=== PATIENT | female | born 1960 | race Two or more races ===

== ENCOUNTER → 2017-01-05 | Outpatient (CLI) | payer BC ==
--- NOTE | 2017-01-05 11:08 | RAD ---
Abdominal ultrasound, 01/05/2017: History: Elevated liver enzymes The gallbladder is surgically absent. The common hepatic duct is of normal caliber. The liver is enlarged measuring 20 cm in craniocaudad extent. It demonstrates generalized increased echogenicity, most commonly due to fatty change. No hepatic mass is evident. The visualized portions of the pancreas are unremarkable. The spleen is at the upper limits of normal in size measuring 14 cm in craniocaudad extent. The kidneys are unremarkable. The visualized portions of the aorta and inferior vena cava show no abnormality. No free fluid is evident in the abdomen. IMPRESSION: 1. Status post cholecystectomy. 2. Mild hepatomegaly with hepatic steatosis. 3. Borderline splenomegaly.
== END | disposition home or self-care (01) ==
LOC: US 08:43
PROVIDERS: ATTEND Family Medicine
DX: K76.0 Fatty (change of) liver, not elsewhere classified (principal); R16.0 Hepatomegaly, not elsewhere classified; R16.1 Splenomegaly, not elsewhere classified; Z90.49 Acquired absence of other specified parts of digestive tract
CPT/HCPCS: 76700

== ENCOUNTER → 2017-03-01 | Outpatient (CLI) | payer BC ==
[~2017-03-01] MED LIST: HYDR-971 PO
--- NOTE | 2017-03-02 07:17 | RAD ---
Right lower extremity venous ultrasound, 03/01/2017 : History: Right leg pain Duplex evaluation including grayscale, color flow and spectral Doppler analysis was performed. The femoral and popliteal veins show no filling defects to suggest DVT. The visualized calf veins are unremarkable. IMPRESSION: There is no sonographic evidence of deep vein thrombosis in the right lower extremity
== END | disposition home or self-care (01) ==
LOC: US 16:51
PROVIDERS: ATTEND Nurse Practitioner Adult Health
DX: M79.604 Pain in right leg (principal); M71.21 Synovial cyst of popliteal space [Baker], right knee; M79.669 Pain in unspecified lower leg
CPT/HCPCS: 93971

== ENCOUNTER → 2017-03-02 | Outpatient (CLI) | payer BC ==
[~2017-03-02] MED LIST changes: +IOHEXOL 300 MG/ML 75 ML VIAL. IV ONE
--- NOTE | 2017-03-02 16:19 | RAD ---
CTA of the chest with contrast, 03/02/2017: History: Elevated d-dimer Multidetector CT imaging was performed following an IV bolus injection of iodinated contrast material. Multiplanar reconstructions were produced including coronal MIP images. The central pulmonary arteries are well opacified and no filling defects are seen to suggest pulmonary emboli. There is mild calcific plaquing of the thoracic aorta and its branches including the coronary arteries. The thoracic aorta is not dilated. No mediastinal adenopathy is seen. A small amount of lymphoid tissue is present at both deneen without definite pathologic enlargement. There is mild dependent atelectasis in both lungs. No pulmonary mass or significant infiltrate is seen. There is no evidence of pleural fluid. Diffusely decreased density in the liver suggests hepatic steatosis. There are mild scattered spurs in the spine. IMPRESSION: 1. No CT evidence of central pulmonary emboli. 2. Coronary artery calcifications. 3. Hepatic steatosis PQRS Compliance Statement: One or more of the following individualized dose reduction techniques were utilized for this examination: 1. Automated exposure control 2. Adjustment of the mA and/or kV according to patient size 3. Use of iterative reconstruction technique
== END | disposition home or self-care (01) ==
LOC: CT 15:18
PROVIDERS: ATTEND Family Medicine
DX: I25.10 Atherosclerotic heart disease of native coronary artery without angina pectoris (principal); J98.11 Atelectasis; K76.0 Fatty (change of) liver, not elsewhere classified; I10 Essential (primary) hypertension; J45.909 Unspecified asthma, uncomplicated; E03.9 Hypothyroidism, unspecified; R05 Cough
CPT/HCPCS: 71275; Q9967

== ENCOUNTER 2017-03-04 16:59 | Emergency (ER) | payer BC ==
[2017-03-04 17:09] VITALS: BP 148/78
[2017-03-04] MEDS ORDERED: HYDR-971 PO (17:32)
--- NOTE | 2017-03-04 17:33 | PHYS DOC ---
Past History Past Medical History: Diabetes, Hypertension, Other Alcohol Use: None Drug Use: None Adult General Chief Complaint Chief Complaint: KNEE PAIN HPI HPI Patient is a 56-year-old female who presented to the emergency department with the complaint of right knee pain for one week. Patient did not injure her knee. She didn't do anything to cause any knee pain, there was no overuse or excessive standing. In fact, she was seated more than usual during the day, then again during the evening, then her right knee started hurting 1 week ago. She saw her doctor this week in the office and had knee x-rays and was told that she had "mild osteoarthritis. 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 She continued to have pain mostly behind and below her knee and she had a venous Doppler with no DVT. She also had a positive d-dimer and ended up having CT angiography used which was negative. She took one dose of ibuprofen which did seem to help but she is very reluctant to use ibuprofen because years ago she had gastritis after using it for a long time. Her doctor also prescribed tramadol but she is still having pain. The patient presented to the ED basically with the request to have an MRI of her knee "to find out what is wrong with it". 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 Review of Systems Review of Systems Constitutional: Denies fever or chills [] Musculoskeletal: Denies any other joint pain except the right knee Allergies Allergies Allergies Coded Allergies Type Severity Reaction Last Updated Verified No Known Drug Allergies 03/02/17 No Physical Exam Physical Exam Constitutional: Well developed, well nourished, no acute distress, non-toxic appearance. [] HENT: Normocephalic, atraumatic, bilateral external ears normal, nose normal. [ ] Eyes: conjunctiva normal, no discharge. [] Neck: Normal range of motion, no stridor. [] Skin: Warm, dry, no erythema, no rash. [] Extremities: Right knee appears to have very mild swelling, no joint effusion, no redness, no warmth. Patient is able to actively extend her right knee. Right calf is very soft and does not appear consistent with DVT. There is some mild tenderness to palpation of the posterior aspect of the right leg just below the knee. There is no palpable fullness behind the knee. Neurologic: Alert and oriented X 3, normal motor function, normal sensory function, no focal deficits noted. [] Current Patient Data Vital Signs Vital Signs Date Time Temp Pulse Resp B/P (MAP) Pulse Ox O2 Delivery O2 Flow Rate FiO2 03/04/17 17:09 97.9 78 16 98 EKG EKG [] Radiology/Procedures Radiology/Procedures [] Course & Med Decision Making Course & Med Decision Making Pertinent Labs and Imaging studies reviewed. (See chart for details) 56-year-old female presents with 1 week of right knee pain which is causing her a lot of frustration because she does not know what's wrong with her knee. I talked to the patient about the fact that sometimes we do see people with sudden onset of knee pain for no apparent reason, I reassured her that in the case of people who have some amount of knee arthritis, it is not uncommon to have acute onset of knee pain without any particularly clear aggravating injury. I talked to her about the use of ibuprofen, I would recommend taking ibuprofen for a short time being careful to take it with food. I offered her a prescription for hydrocodone for more severe pain for short-term use until she is able to get to see an consumer marketing specialist and she agreed to that. Appropriate precautions were given. I advised her to try to get in to see an consumer marketing specialist for more evaluation of her knee. [] Dragon Disclaimer Dragon Disclaimer This chart was dictated in whole or in part using Voice Recognition software in a busy, high-work load, and often noisy Emergency Department environment. It may contain unintended and wholly unrecognized errors or omissions. Departure Departure: Impression: Primary Impression: Right knee pain Disposition: 01 HOME, SELF-CARE Condition: STABLE Referrals: SHERLY FLYNN MD (PCP) Patient Instructions: Knee Pain, [id number] Additional Instructions: Try to stay off of your knee and rest it for another day or 2. Ice 15-20 minutes out of every 1-2 hours. Ibuprofen 400 mg every 6-8 hours for pain and inflammation. You may combine tramadol or hydrocodone with ibuprofen if needed for extra pain control. Do not take tramadol and hydrocodone at the same time though. Talk to your doctor or see orthopedics for further knee evaluation, at this point you probably need to see an orthopedic knee specialist for further evaluation and treatment. Scripts Hydrocodone Bit/Acetaminophen (NORCO 5-325 TABLET) 1 Each Tablet 1-2 TAB PO Q4-6HRS for knee pain, #20 TAB Prov: LIBIA FISHER MD 03/04/17 LIBIA FISHER MD March 04, 2017 17:33
[2017-03-04] MEDS ORDERED: HYDROcodone/APAP 5/325MG 1 TAB TABLET PO ONE (18:00)
== END 2017-03-04 17:40 | disposition home or self-care (01) ==
LOC: ER 16:59
DX: M25.561 Pain in right knee (principal); E11.9 Type 2 diabetes mellitus without complications; I10 Essential (primary) hypertension
CPT/HCPCS: 99283

== ENCOUNTER 2017-08-09 17:27 | Emergency (ER) | payer BC ==
[~2017-08-09] VITALS: Ht 165.1 cm; Wt 89.4 kg
[~2017-08-09 17:27] MED LIST changes: -IOHEXOL 300 MG/ML 75 ML VIAL. IV ONE
[2017-08-09] MEDS ORDERED: IV NORMAL SALINE 1,000ML 1,000 ML IV SCH (18:30)
[2017-08-09] MEDS ORDERED: 0.9 % SODIUM CHLORIDE 10 ML DISP.SYRIN. IV PRN (18:30)
[2017-08-09] MEDS ORDERED: ONDANSETRON PF 4 MG/2 ML VIAL. IV ONE (18:30)
[2017-08-09] MEDS ORDERED: HYDROmorphone PF 2 MG/ML VIAL IV/SQ PRN (18:30)
--- NOTE | 2017-08-09 18:44 | PHYS DOC ---
Past History Past Medical History: Diabetes, Hypertension, Other Past Surgical History: Cholecystectomy, , Lumbar Laminectomy Alcohol Use: None Drug Use: None Adult General Chief Complaint Chief Complaint: HEADACHE HPI HPI Patient is a pleasant 57-year-old female with a history of chronic lower back pains prior laminectomy and continues to have sciatica with now atrophy of the muscles within the left leg she had a myelogram done yesterday by an anesthesiologist at [facility]. She was told to remain in a recumbent position and drink caffeine. She attempted to go to work today and even though she worked only a few hours she began having a throbbing headache that was worse with standing up. It is described as aching dull pain that radiates from the base versus scold to the base of her spine. There is no neck stiffness associated with this or fevers. Patient's been nauseated with photophobia but no actual vomiting diarrhea URI symptoms or change in neurologic status. Patient's pain is 5 of 10 laying down 8-9 of 10 when standing. Patient has taken nothing to try to fix her headache other than to large diet Mountain Dew soda's Review of Systems Review of Systems Constitutional: Denies fever or chills [] Eyes: Denies change in visual acuity, redness, or eye pain [] HENT: Denies nasal congestion or sore throat [] Respiratory: Denies cough or shortness of breath [] Cardiovascular: No additional information not addressed in HPI [] GI: Denies abdominal pain, vomiting, bloody stools or diarrhea [] : Denies dysuria or hematuria [] Musculoskeletal: She has chronic back pain. Integument: Denies rash or skin lesions [] Neurologic: He does complain of headache at the base of her skull not worst of life and sudden onset no focal new weakness Endocrine: Denies polyuria or polydipsia [] Current Medications Current Medications Current Medications Medications (Trade) Dose Ordered Sig/Jose Start Time Stop Time Status Last Admin Dose Admin Hydromorphone HCl (Dilaudid) 1 mg PRN Q15MIN PRN 08/09/17 18:30 08/09/17 18:30 1 MG Ondansetron HCl (Zofran) 4 mg 1X ONCE 08/09/17 18:30 08/09/17 18:31 DC 08/09/17 18:29 4 MG Sodium Chloride (Normal Saline Flush) 10 ml QSHIFT PRN 08/09/17 18:30 Allergies Allergies Allergies Coded Allergies Type Severity Reaction Last Updated Verified latex Allergy Severe RASH 08/09/17 Yes Physical Exam Physical Exam Other vital signs recorded on the chart patient under be hypertensive Constitutional: Well developed, well nourished, no acute distress, non-toxic appearance. [] HENT: Normocephalic, atraumatic,oropharynx moist. [] Eyes: PERRLA, EOMI, conjunctiva normal, no discharge. [] Neck: Normal range of motion, no tenderness, supple, no stridor. [] Cardiovascular:Heart rate regular rhythm, no murmur [] Lungs & Thorax: Bilateral breath sounds clear to auscultation [] Skin: Warm, dry, no erythema, no rash. [] Back: No tenderness, well-healed scar from a laminectomy the puncture site for the myelogram does not look warm, erythematous or soft tissue swelling is not noted.] Extremities: No edema no clubbing no cyanosis brisk capillary refill +2 brisk peripheral pulses noted Neurologic: Alert and oriented X 3, normal motor function, normal sensory function, no focal deficits noted. [] Psychologic: Affect normal, judgement normal, mood normal. [] Current Patient Data Vital Signs Vital Signs Date Time Temp Pulse Resp B/P (MAP) Pulse Ox O2 Delivery O2 Flow Rate FiO2 08/09/17 18:30 20 95 EKG EKG [] Radiology/Procedures Radiology/Procedures [] Course & Med Decision Making Course & Med Decision Making Pertinent Labs and Imaging studies reviewed. 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 Unfortunately at our facility we do not have anesthesia services or IV caffeine available on formulary. She said she like to go home and she will follow-up with her anesthesiologist tomorrow for symptoms continue. I did encourage her to go continue to work at home on her hydration and continue to use caffeinated drinks to help treat her symptoms. I was prescribed her some low-dose narcotics , and caffeine-related products to help with her symptoms. [] Dragon Disclaimer Dragon Disclaimer This chart was dictated in whole or in part using Voice Recognition software in a busy, high-work load, and often noisy Emergency Department environment. It may contain unintended and wholly unrecognized errors or omissions. Departure Departure: Impression: Primary Impression: Post-lumbar puncture headache Condition: STABLE Referrals: SHERLY LFYNN MD (PCP) Patient Instructions: Epidural Blood Patching in Spinal Headache, Spinal Headache Additional Instructions: My discharge plan Follow up: In addition patient is asked to followup with their primary doctor, within a week for followup examination and to address patient's ongoing medical conditions. Patient is advised that in the Emergency Department primary complaints are addressed and only in light of known signs and symptoms. Patient should return immediately to the emergency department if new signs and symptoms develop or patient's condition worsens in any way. At time of discharge patient was in stable condition and had verbalized understanding of the discharge instructions. Since we do not have anesthesia services here at this facility when encourage you to follow up with a facility that danger procedure tomorrow if you're still having symptoms. Thank you for letting us take care of you at this time and will be one happy to take care of you can in the future Scripts Hydrocodone Bit/Acetaminophen (HYDROCODONE-APAP 5-325 ) 1 Each Tablet 1 TAB PO PRN Q6HRS Y for PAIN for 5 Days, #10 TAB 0 Refills Prov: JEREMÍAS LUCIO MD 08/09/17 Caffeine (CAFFEINE) 200 Mg Tablet 200 MG PO TID for 2 Days, #6 TAB Prov: JEREMÍAS LUCIO MD 08/09/17 JEREMÍAS LUCIO MD Aug 09, 2017 18:44
[2017-08-09] MEDS ORDERED: CAFF200T13 PO (20:04)
[2017-08-09] MEDS ORDERED: HYDR-2758 PO (20:04)
[2017-08-09 20:10] VITALS: BP 154/70
== END 2017-08-09 20:11 | disposition home or self-care (01) ==
LOC: ER 17:27
DX: G97.1 Other reaction to spinal and lumbar puncture (principal); G89.29 Other chronic pain; E11.9 Type 2 diabetes mellitus without complications; I10 Essential (primary) hypertension; Z90.49 Acquired absence of other specified parts of digestive tract; Z98.890 Other specified postprocedural states; Z91.040 Latex allergy status; Y84.4 Aspiration of fluid as the cause of abnormal reaction of the patient, or of later complication, without mention of misadventure at the time of the procedure; Y92.89 Other specified places as the place of occurrence of the external cause
CPT/HCPCS: 96361; 96374; 96375; 99285; J1170; J2405; J7030

== ENCOUNTER → 2018-04-11 | Outpatient (CLI) | payer BC ==
[~2018-04-11] MED LIST changes: +CAFF200T13 PO; +HYDR-2758 PO
--- NOTE | 2018-04-11 16:53 | RAD ---
Cervical spine, 5 views, 04/11/2018: HISTORY: Radiculopathy, neck pain The patient is rotated on the attempted lateral view. No fracture or dislocation is identified. The disc spaces are fairly well preserved. There are mild scattered marginal spurs. There are moderate degenerative changes involving multiple facet joints bilaterally. The spurring is causing mild to moderate foraminal narrowing at C3-4, C4-5 and C5-6, left greater then right. The prevertebral soft tissues are unremarkable. IMPRESSION: 1. Moderate multilevel degenerative change as described above. 2. No acute bony abnormality is detected. Electronically signed by: Siddharth Baca MD (04/11/2018 4:50 PM) [facility]
== END | disposition home or self-care (01) ==
LOC: RAD 16:31
PROVIDERS: ATTEND Psychiatry & Neurology Neurology
DX: M48.02 Spinal stenosis, cervical region (principal)
CPT/HCPCS: 72050

== ENCOUNTER 2020-01-22 19:58 | Emergency (ER) | payer BC ==
[~2020-01-22] VITALS: Ht 165.1 cm; Wt 90.9 kg
[~2020-01-22 19:58] MED LIST changes: +HYDR-2155 PO; -HYDR-2758 PO; +HYDR-3165 PO; -HYDR-971 PO
--- NOTE | 2020-01-22 20:05 | PHYS DOC ---
Past History Past Medical History: Diabetes, Hypertension, Hypothyroid, Other Past Surgical History: Cholecystectomy, , Lumbar Laminectomy Alcohol Use: None Drug Use: None General Adult EDM: Chief Complaint: '" ... I fell..I was just walking across my patio...about 3 pm...and tripped..skinned up this Lt knee, twisted this Lt. ankle,,banged this Lt. elbow and hand.." HPI: HPI: Patient is a 59 year old female who presents with above hx and complaints of fall. Patient denies any dyspnea or dysrhythmia before fall. Patient states she just tripped. Patient complaining of contusions to left hand and left elbow left knee and inverted left ankle and foot. Distal neurovascular is equal to the right foot. Patient has pain on percussion of lateral malleolus and foot squeeze. Patient has some pain with stress on Achilles. No upper leg tenderness other than the area of abrasion and left knee. Abrasions approximately 2 x 3 cm. Patient also has contusion to left elbow and left palm of hand. Distal neurovascular appears to be intact in both left foot and left hand. Patient is right-hand dominant. Patient normally follows with Dr. Benson. Injury occurred approximately 1500 hrs. tonight. Patient has been ambulatory with Chaitanya wrap. Patient thinks her tetanus is approximately 6 to 7 years ago. Review of Systems: Review of Systems: Constitutional: Denies fever or chills Eyes: Denies change in visual acuity HENT: Denies nasal congestion or sore throat Respiratory: Denies cough or shortness of breath Cardiovascular: Denies chest pain or edema GI: Denies abdominal pain, nausea, vomiting, bloody stools or diarrhea : Denies dysuria Musculoskeletal: The patient complains of pain in left david, ankle, knee ,elbow and a contusion to the left gluteal area. Integument: Denies rash Neurologic: Denies headache, focal weakness or sensory changes Endocrine: Denies polyuria or polydipsia Lymphatic: Denies swollen glands Psychiatric: Denies depression or anxiety Heart Score: Risk Factors: Risk Factors: DM, Current or recent (<one month) smoker, HTN, HLP, family history of CAD, obesity. Risk Scores: Score 0 - 3: 2.5% MACE over next 6 weeks - Discharge Home Score 4 - 6: 20.3% MACE over next 6 weeks - Admit for Clinical Observation Score 7 - 10: 72.7% MACE over next 6 weeks - Early Invasive Strategies Family History: Family History: Noncontributory to presentation Current Medications: Current Meds: See nursing for home meds Allergies: Allergies: Allergies Coded Allergies Type Severity Reaction Last Updated Verified latex Allergy Severe RASH 08/09/17 Yes Physical Exam: PE: Constitutional: Moderate acute distress, non-toxic appearance. [] HENT: Normocephalic, atraumatic, bilateral external ears normal, oropharynx moist, no oral exudates, nose normal. [] Eyes: PERRLA, EOMI, conjunctiva normal, no discharge. [] Neck: Normal range of motion, no tenderness, supple, no stridor. [] Surgical scar on neck for evaluation of lymphoma/sarcoid Cardiovascular:Heart rate regular rhythm, no murmur [] Lungs & Thorax: Bilateral breath sounds equal at apex auscultation [] Abdomen: Bowel sounds normal, soft, no tenderness, no masses, no pulsatile masses. Old right upper quadrant gallbladder scar. Other abdomen scars. Obese. Skin: Warm, dry, no erythema, no rash. [] Back: No tenderness, no CVA tenderness. [] Extremities: No tenderness, no cyanosis, no clubbing, ROM intact, no edema. [] Except findings and left foot, left ankle, left knee, left elbow, left hand as per HPI Neurologic: Alert and oriented X 3, normal motor function, normal sensory function, no focal deficits noted. [] Psychologic: Affect anxious, judgement normal, mood normal. [] EKG: EKG: [] Radiology/Procedures: Radiology/Procedures: [[address] [address] IMAGING REPORT Signed PATIENT: JAMIN MARIE ACCOUNT: [id number] : 1960 LOCATION: ER AGE: 59 SEX: F EXAM STATUS: REG ER ORD. PHYSICIAN: SOLITARIO REAL MD REASON: fall PROCEDURE: ELBOW LEFT 3V ELBOW LEFT 3V, HAND LEFT 3V 01/22/2020 8:21 PM INDICATION: Fall COMPARISON: None available. TECHNIQUE: 3 views the left hand and 3 views of the left elbow are provided. FINDINGS/ IMPRESSION: There is no acute fracture or dislocation. Joint spaces are maintained. Bone mineralization is within normal limits. Regional soft tissues are within normal limits. There is no soft tissue gas or osseous erosion. No radiopaque foreign body. Vascular calcifications are present. Linear lucency along the, or base of the distal phalanx of the first digit most favors a nutrient channel. Correlate with point tenderness. There may be subtle elbow joint effusion with elevation posterior fat pad. No acute fracture or dislocation is identified. If symptoms persist, recommend repeat evaluation in 7-10 days. Electronically signed by: Cristobal Guardado MD (01/22/2020 9:28 PM) [facility] DICTATED AND SIGNED BY: CRISTOBAL GUARDADO MD DATE: 01/22/202127 CC: SHERLY FLYNN MD; SOLITARIO REAL MD ~ ][place] [address] IMAGING REPORT Signed PATIENT: JAMIN MARIE ACCOUNT: [id number] : 1960 LOCATION: ER AGE: 59 SEX: F EXAM STATUS: REG ER ORD. PHYSICIAN: SOLITARIO REAL MD REASON: fall PROCEDURE: ANKLE LEFT 3V FOOT LEFT 3V, ANKLE LEFT 3V 01/22/2020 8:21 PM INDICATION: Fall COMPARISON: None available. TECHNIQUE: 3 views the left foot and 3 views left ankle are provided. FINDINGS/ IMPRESSION: There is no acute fracture or dislocation. Joint spaces are maintained. Bone mineralization is within normal limits. Regional soft tissues are within normal limits. There is no soft tissue gas or osseous erosion. No radiopaque foreign body. Vascular calcifications are present. Posterior and plantar calcaneal enthesophytes are noted. Electronically signed by: Cristobal Guardado MD (01/22/2020 9:26 PM) [facility] DICTATED AND SIGNED BY: CRISTOBAL GUARDADO MD DATE: 01/22/202125 CC: SHERLY FLYNN MD; SOLITARIO REAL MD ~ Course & Med Decision Making: Course & Med Decision Making Pertinent Labs and Imaging studies reviewed. (See chart for details) Ice, rest, elevation, Chaitanya wrap, and take Tylenol and ibuprofen for pain. Follow-up primary care. Use Polysporin 4 times a day to left knee abrasion. Fo r marked pain may take Vicoprofen up to 4 times a day for pain. Follow-up with Dr. Romero. Return if any concerns. Re-x-ray joints in 2 weeks if still has pain. Impression; 1. Fall-trip 2. Contusions and abrasions 3. Sprain strain left foot and ankle [] Dragon Disclaimer: Dragon Disclaimer: This electronic medical record was generated, in whole or in part, using a voice recognition dictation system. Departure Departure: Disposition: HOME/RESIDENCE PRIOR TO ADM Condition: STABLE Referrals: SHERLY FLYNN MD (PCP) Scripts Hydrocodone/Ibuprofen (HYDROCODONE-IBUPROFEN 7.5-200 ) 1 Each Tablet 1 TAB PO PRN Q6HRS PRN for PAIN, #30 TAB 0 Refills Prov: SOLITARIO REAL MD 01/22/20 Dragon Disclaimer This chart was dictated in whole or in part using Voice Recognition software in a busy, high-work load, and often noisy Emergency Department environment. It may contain unintended and wholly unrecognized errors or omissions. Dragon Disclaimer This chart was dictated in whole or in part using Voice Recognition software in a busy, high-work load, and often noisy Emergency Department environment. It may contain unintended and wholly unrecognized errors or omissions. Dragon Disclaimer This chart was dictated in whole or in part using Voice Recognition software in a busy, high-work load, and often noisy Emergency Department environment. It may contain unintended and wholly unrecognized errors or omissions. SOLITARIO REAL MD Jan 22, 2020 20:05
[2020-01-22] MEDS ORDERED: HYDR-1179 PO (20:28)
[2020-01-22] MEDS ORDERED: HYDROcodon/IBUPROFEN 7.5/200MG 1 TAB TABLET PO ONE (21:00)
[2020-01-22] MEDS ORDERED: DIPH,PERTUSS(ACELL),TET VAC/PF 0.5 ML SYRINGE. VAX IM ONE (21:00)
[2020-01-22] MEDS ORDERED: BACITRACIN ZINC TOPICAL OINT PACKET. TP ONE (21:00)
--- NOTE | 2020-01-22 21:29 | RAD ---
FOOT LEFT 3V, ANKLE LEFT 3V 01/22/2020 8:21 PM INDICATION: Fall COMPARISON: None available. TECHNIQUE: 3 views the left foot and 3 views left ankle are provided. FINDINGS/ IMPRESSION: There is no acute fracture or dislocation. Joint spaces are maintained. Bone mineralization is within normal limits. Regional soft tissues are within normal limits. There is no soft tissue gas or osseous erosion. No radiopaque foreign body. Vascular calcifications are present. Posterior and plantar calcaneal enthesophytes are noted. Electronically signed by: Pauly Chacon MD (01/22/2020 9:26 PM) [facility]
--- NOTE | 2020-01-22 21:31 | RAD ---
ELBOW LEFT 3V, HAND LEFT 3V 01/22/2020 8:21 PM INDICATION: Fall COMPARISON: None available. TECHNIQUE: 3 views the left hand and 3 views of the left elbow are provided. FINDINGS/ IMPRESSION: There is no acute fracture or dislocation. Joint spaces are maintained. Bone mineralization is within normal limits. Regional soft tissues are within normal limits. There is no soft tissue gas or osseous erosion. No radiopaque foreign body. Vascular calcifications are present. Linear lucency along the, or base of the distal phalanx of the first digit most favors a nutrient channel. Correlate with point tenderness. There may be subtle elbow joint effusion with elevation posterior fat pad. No acute fracture or dislocation is identified. If symptoms persist, recommend repeat evaluation in 7-10 days. Electronically signed by: Pauly Chacon MD (01/22/2020 9:28 PM) [facility]
--- NOTE | 2020-01-22 21:34 | RAD ---
KNEE LEFT 4V 01/22/2020 8:21 PM INDICATION: Fall COMPARISON: None available. TECHNIQUE: 3 views of the left knee are provided. FINDINGS/ IMPRESSION: There is no acute fracture or dislocation. Joint spaces are maintained. Bone mineralization is within normal limits. Regional soft tissues are within normal limits. There is no soft tissue gas or osseous erosion. No radiopaque foreign body. No significant knee joint effusion. Vascular calcifications are present. Electronically signed by: Pauly Chacon MD (01/22/2020 9:31 PM) [facility]
[2020-01-22 22:00] VITALS: BP 157/82
== END 2020-01-22 22:03 | disposition home or self-care (01) ==
LOC: ER 19:58
DX: S93.602A Unspecified sprain of left foot, initial encounter (principal); S93.492A Sprain of other ligament of left ankle, initial encounter; S60.222A Contusion of left hand, initial encounter; S50.02XA Contusion of left elbow, initial encounter; S80.02XA Contusion of left knee, initial encounter; S30.0XXA Contusion of lower back and pelvis, initial encounter; E11.9 Type 2 diabetes mellitus without complications; I10 Essential (primary) hypertension; E03.9 Hypothyroidism, unspecified; Z91.040 Latex allergy status; W01.0XXA Fall on same level from slipping, tripping and stumbling without subsequent striking against object, initial encounter; Y93.89 Activity, other specified; Y92.89 Other specified places as the place of occurrence of the external cause; Y99.8 Other external cause status
CPT/HCPCS: 73080; 73130; 73564; 73610; 73630; 90471; 90715; 99284-25

== ENCOUNTER 2021-03-27 19:39 | Emergency (ER) | payer BC ==
[~2021-03-27] VITALS: Ht 165.1 cm; Wt 89.6 kg
[~2021-03-27 19:39] MED LIST changes: +HYDR-1179 PO
[2021-03-27] MEDS ORDERED: ACETAMINOPHEN 500 MG TABLET PO ONE (21:00)
--- NOTE | 2021-03-27 21:13 | RAD ---
AP chest x-ray HISTORY: Right-sided chest pain shortness of breath. Sarcoidosis. COMPARISON: CT chest March 02, 2017. FINDINGS: Heart size normal. Mediastinal silhouette is normal. No pneumothorax. No pleural effusions. Left lung is clear. Opacity of the right middle lobe silhouetting the minor fissure. Bones unremarka ble. IMPRESSION: Right middle lobe infiltrate likely lobar pneumonia. Follow-up x-rays after treatment adv ised to document that this resolves. Electronically signed by: Valerio Harrell MD (03/27/2021 9:10 PM) [facility]
--- NOTE | 2021-03-27 21:23 | PHYS DOC ---
Past History Past Medical History: Depression, Diabetes, Hypertension, Hypothyroid, Other Additional Past Medical Histor: chronic hip pain, sarcodosis-resolved, neuropathy Past Surgical History: Cholecystectomy, , Lumbar Laminectomy, Other Additional Past Surgical Histo: back sx Alcohol Use: None Drug Use: None Adult General Chief Complaint Chief Complaint: FEVER HPI HPI Patient is a 60-year-old female who presents with a chief complaint of strep throat and cough. States that she was diagnosed with strep throat 4 days ago and was started on amoxicillin. States she is on day 4 of her amoxicillin, but is still having intermittent fevers at home to 102 that do respond to Tylenol and Motrin. States she also developed a cough over the last day or so which she did not have before. States she is also having some pain when she is breathing, 6 out of 10, sharp in nature, mostly on the right side. Denies any recent traumas, travels, known ill contacts. Review of Systems Review of Systems Constitutional: Denies fever or chills [] Eyes: Denies change in visual acuity, redness, or eye pain [] HENT: Denies nasal congestion or sore throat [] Respiratory: Denies cough or shortness of breath [] Cardiovascular: No additional information not addressed in HPI [] GI: Denies abdominal pain, nausea, vomiting, bloody stools or diarrhea [] : Denies dysuria or hematuria [] Musculoskeletal: Denies back pain or joint pain [] Integument: Denies rash or skin lesions [] Neurologic: Denies headache, focal weakness or sensory changes [] Endocrine: Denies polyuria or polydipsia [] All other systems were reviewed and found to be within normal limits, except as documented in this note. Current Medications Current Medications Current Medications Medications (Trade) Dose Ordered Sig/Jose Start Time Stop Time Status Last Admin Dose Admin Acetaminophen (Tylenol) 1,000 mg 1X ONCE 03/27/21 21:00 03/27/21 21:01 DC Allergies Allergies Allergies Coded Allergies Type Severity Reaction Last Updated Verified latex Allergy Severe RASH 08/09/17 Yes Physical Exam Physical Exam Constitutional: Well developed, well nourished, no acute distress, non-toxic appearance. [] HENT: Normocephalic, atraumatic, bilateral external ears normal, oropharynx moist, no oral exudates, nose normal. [] Eyes: conjunctiva normal, no discharge. [] Neck: Normal range of motion, no tenderness, supple, no stridor. [] Cardiovascular:Heart rate regular rhythm, no murmur [] Lungs & Thorax: Bilateral, global rhonchi, worse on the right with decreased b reath sounds, no wheezing Abdomen: soft, no tenderness, no masses, no pulsatile masses. [] Skin: Warm, dry, no erythema, no rash. [] Back: No tenderness, no CVA tenderness. [] Extremities: No tenderness, no cyanosis, no clubbing, ROM intact, no edema. [] Neurologic: Alert and oriented X 3, normal motor function, normal sensory function, no focal deficits noted. [] Psychologic: Affect normal, judgement normal, mood normal. [] Current Patient Data Lab Results Laboratory Tests Test 03/27/21 20:19 Glucose (Fingerstick) 141 mg/dL (70-99) H EKG EKG [] Radiology/Procedures Radiology/Procedures [] FINDINGS: Visualized portions of the thyroid are unremarkable. No enlarged mediastinal lymph nodes are identified. Heart size is normal. No pericardial effusion. Thoracic aorta has a normal course and caliber. Pulmonary artery is not enlarged. No pulmonary embolus identified in the main, lobar or segmental pulmonary arteries. Airways are patent. There is consolidative changes noted in the right middle lobe. No suspicious lung nodules. No pneumothorax. No pleural effusion or thickening. Visualized upper abdomen is unremarkable. No suspicious osseous lesions or acute fractures. IMPRESSION: Right middle lobe pneumonia. Follow-up imaging posttreatment to ensure resolution is recommended. Electronically signed by: Howie Mejía MD (03/27/2021 9:43 PM) [facility] Heart Score C/O Chest Pain: Yes Risk Factors: Risk Factors: DM, Current or recent (<one month) smoker, HTN, HLP, family hist ory of CAD, obesity. Risk Scores: Risk Factors: DM, Current or recent (<one month) smoker, HTN, HLP, family history of CAD, obesity. Course & Med Decision Making Course & Med Decision Making Patient is a 60-year-old female who presents with a chief complaint of cough and fevers and diagnosis of strep throat on amoxicillin Vital signs not concerning. Physical exam noted above. EKG noted above and normal. CT of the chest notable for right middle lobe pneumonia. Patient switched from amoxicillin for strep throat to Levaquin in the ED. Patient with no tachycardia, no tachypnea, no fever and no hypoxia. Discussed all findings with patient and family and offered admission to the hospital overnight for IV antibiotics and observation, but patient stated she would prefer to go home, take her medicines there and call her primary care physician first thing in the morning. Gave strict return precautions to the emergency department. Gave recommendations for symptomatic treatment at home. Advised to call primary care first thing in the morning and set up a follow-up in the next few days for repeat chest x-ray and reevaluation. Family grateful, verbalized understanding and agreed with plan of discharge. Dragon Disclaimer Dragon Disclaimer This electronic medical record was generated, in whole or in part, using a voice recognition dictation system. Departure Departure: Impression: Primary Impression: Right middle lobe pneumonia Disposition: HOME / SELF CARE / HOMELESS Condition: GOOD Referrals: SHERLY FLYNN MD (PCP) Patient Instructions: Pneumonia, Adult Additional Instructions: Thank you for coming into the emergency department today and allowing us to take care of you. Please read all of the attached information very carefully. As discussed you have a pneumonia in your right lung and were started on a antibiotic here in the emergency department. You can stop the amoxicillin that she has been on and only take the 1 given here in the emergency department. You were offered admission to the hospital for IV antibiotics, and observation, but you stated you preferred to go home, take your medicines and call your primary care physician. Please call your primary care physician first thing in the morning to update on your ED visit and set up a follow-up this week for reevaluation and repeat chest x-ray. Please come back to the emergency department immediately with any new or concerning symptoms we discussed. Scripts Hydrocodone Bit/Acetaminophen (HYDROCODONE-APAP 5-325 ) 1 Each Tablet 1 TAB PO TID PRN for PAIN for 3 Days, #9 TAB 0 Refills Prov: EMA DUQUE MD 03/27/21 Levofloxacin (LEVOFLOXACIN) 750 Mg Tablet 1 TAB PO DAILY for pneumonia for 6 Days, #6 TAB Prov: EMA DUQUE MD 03/27/21 EMA DUQUE MD Mar 27, 2021 21:23
--- NOTE | 2021-03-27 21:45 | RAD ---
Exam: CT of chest without contrast INDICATION: Cough, abnormal chest x-ray TECHNIQUE: Sequential axial images through the chest obtained without IV contrast. Sagittal and coron al reformatted images were reconstructed from the axial data and reviewed. Exposure: One or more of the following in the visualized dose reduction techniques were utilized for this examination: 1. Automated exposure control 2. Adjustment of the MA and/or KV according to patient size 3. Use of iterative of reconstructive technique Comparisons: Chest x-ray same day FINDINGS: Visualized portions of the thyroid are unremarkable. No enlarged mediastinal lymph nodes are identifi ed. Heart size is normal. No pericardial effusion. Thoracic aorta has a normal course and caliber. Pulmon nando artery is not enlarged. No pulmonary embolus identified in the main, lobar or segmental pulmonary arteries. Airways are patent. There is consolidative changes noted in the right middle lobe. No suspicious lung nodules. No pneumothorax. No pleural effusion or thickening. Visualized upper abdomen is unremarkable. No suspicious osseous lesions or acute fractures. IMPRESSION: Right middle lobe pneumonia. Follow-up imaging posttreatment to ensure resolution is recommended. Electronically signed by: Howie Mejía MD (03/27/2021 9:43 PM) [facility]
[2021-03-27] MEDS ORDERED: levoFLOXacin 500 MG TABLET PO ONE (22:00)
[2021-03-27] MEDS ORDERED: HYDROcodone/APAP 5/325MG 1 TAB TABLET PO ONE (22:00)
[2021-03-27] MEDS ORDERED: levoFLOXacin 250 MG TABLET PO ONE (22:00)
[2021-03-27] MEDS ORDERED: LEVO750T5 PO (22:05)
[2021-03-27] MEDS ORDERED: HYDR-2155 PO (22:06)
[2021-03-27 22:11] VITALS: BP 111/51
--- NOTE | 2021-03-28 00:05 | EKG ---
[address] [address] Test Date: 2021-03-27 Test Time: 20:09:18 Pat Name: JAMIN MARIE Department: Room: Gender: F Disabilities Caregiver: TEENA : 1960 Requested By: EAM DUQUE Order Number: [id number] Reading MD: Measurements Intervals Maynard Rate: 94 P: 32 IA: 138 QRS: 14 QRSD: 82 T: 44 QT: 336 QTc: 425 Interpretive Statements SINUS RHYTHM NORMAL ECG RI6.02 Compared to ECG 03/27/2021 20:05:29 No significant changes
== END 2021-03-27 22:22 | disposition home or self-care (01) ==
LOC: ER 19:39
DX: J18.9 Pneumonia, unspecified organism (principal); E11.9 Type 2 diabetes mellitus without complications; I10 Essential (primary) hypertension; Z91.040 Latex allergy status; Z90.49 Acquired absence of other specified parts of digestive tract
CPT/HCPCS: 71045; 71250; 82947; 93005; 99284-25